=== PATIENT | female | born 1945 | race Caucasian/White ===

== ENCOUNTER → 2016-07-18 | Outpatient (CLI) | payer MEDICARE, OTHER | LOC: MC.RAD 09:52 | DX: Z12.31 Encounter for screening mammogram for malignant neoplasm of breast (principal); Z80.3 Family history of malignant neoplasm of breast ==

== ENCOUNTER → 2017-08-09 | Outpatient (CLI) | payer MEDICARE, OTHER | LOC: MC.RAD 10:40 | DX: Z12.31 Encounter for screening mammogram for malignant neoplasm of breast (principal) ==

== ENCOUNTER 2018-01-03 05:59 | Day surgery (SDC) | payer MEDICARE, OTHER ==
[~2018-01-03] VITALS: Ht 152.4 cm; Wt 68.2 kg
[2018-01-03] VITALS (8 sets, daily range): BP systolic 109–136; BP diastolic 62–81; PULSE 64–75; TEMP 97.9
[2018-01-03 06:25] LABS: HEMATOCRIT 39.9 % (37.0-47.0); HEMOGLOBIN 13.9 g/dl (12.5-16.0); MEAN CELL VOLUME 94 fl (80.0-100.0); MEAN CORPUSCULAR HEMOGLOBIN 33 pg (27.0-31.0); MEAN CORPUSCULAR HGB CONC 35 g/dl (33.0-37.0); MEAN PLATELET VOLUME 9.7 fl (7.4-10.4); PLATELET COUNT 253 K/mm3 (130-400); RED BLOOD COUNT 4.24 M/mm3 (4.10-5.30); REDCELL DISTRIBUTION WIDTH-CV 12.3 % (11.5-14.5)
[2018-01-03 06:30] LABS: INR 0.9 (0.8-3.0); PROTHROMBIN TIME 10.3 SECONDS (9.7-12.8)
[2018-01-03 06:38] LABS: CALCIUM 8.9 mg/dL (8.4-10.2); CREATININE, serum 0.75 mg/dL (0.52-1.25); POTASSIUM 4.1 mmol/L (3.4-5.0)
[2018-01-03] MEDS ORDERED: LEXAPRO20 MG PO (07:13)
[2018-01-03] MEDS ORDERED: PRIL40 PO (07:18)
[2018-01-03] MEDS ORDERED: SINGULAIR 110 MG/TAB PO (07:18)
[2018-01-03] MEDS ORDERED: [UNRECOGNIZED DRUG - REMARK] PO (07:19)
[2018-01-03] MEDS ORDERED: MASON NATURAL2000 IU PO (07:21)
[2018-01-03] MEDS ORDERED: PROBIOTIC FORMU1 CAP PO (07:21)
[2018-01-03] MEDS ORDERED: LIPITOR 80MG80 MG PO (07:22)
[2018-01-03] MEDS ORDERED: PLAVIX 75MG TAB75 MG PO (07:22)
[2018-01-03] MEDS ORDERED: ASPIRIN 81M81 MG/TA2 PO (07:23)
[2018-01-03] MEDS ORDERED: IMDUR 30MG30 MG/TAB PO (09:30)
== END 2018-01-03 12:34 | disposition home or self-care (01) ==
LOC: COL.CAR 05:59
PROVIDERS: Internal Medicine Cardiovascular Disease
DX: I25.10 Atherosclerotic heart disease of native coronary artery without angina pectoris (principal); I11.0 Hypertensive heart disease with heart failure; I50.9 Heart failure, unspecified; R94.39 Abnormal result of other cardiovascular function study; R94.31 Abnormal electrocardiogram [ECG] [EKG]; I27.20 Pulmonary hypertension, unspecified; Z82.49 Family history of ischemic heart disease and other diseases of the circulatory system; Z83.3 Family history of diabetes mellitus
CPT/HCPCS: J1644; J2250; J3010; Q9967

== ENCOUNTER → 2018-08-28 | Outpatient (CLI) | payer MEDICARE, OTHER ==
[~2018-08-28] MED LIST: ASPIRIN 81M81 MG/TA2 PO; IMDUR 30MG30 MG/TAB PO; LEXAPRO20 MG PO; LIPITOR 80MG80 MG PO; MASON NATURAL2000 IU PO; PLAVIX 75MG TAB75 MG PO; PRIL40 PO; PROBIOTIC FORMU1 CAP PO; SINGULAIR 110 MG/TAB PO; [UNRECOGNIZED DRUG - REMARK] PO
== END ==
LOC: MC.RAD 10:48
DX: Z12.31 Encounter for screening mammogram for malignant neoplasm of breast (principal)

== ENCOUNTER → 2018-11-08 | Outpatient (CLI) | payer MEDICARE, OTHER | LOC: COL.PUL 12:59 | DX: R05 Cough (principal) | CPT/HCPCS: J7674 ==

== ENCOUNTER 2019-01-31 18:20 | Emergency (ER) | payer MEDICARE, OTHER ==
[~2019-01-31] VITALS: Ht 152.4 cm; Wt 65.9 kg
[2019-01-31 19:54] LABS: HEMATOCRIT 40.1 % (37.0-47.0); HEMOGLOBIN 13.8 g/dl (12.5-16.0); MEAN CELL VOLUME 94 fl (80.0-100.0); MEAN CORPUSCULAR HEMOGLOBIN 32 pg (27.0-31.0); MEAN CORPUSCULAR HGB CONC 34 g/dl (33.0-37.0); MEAN PLATELET VOLUME 10.6 fl (7.4-10.4); PLATELET COUNT 110 K/mm3 (130-400); RED BLOOD COUNT 4.26 M/mm3 (4.10-5.30); REDCELL DISTRIBUTION WIDTH-CV 12.3 % (11.5-14.5)
[2019-01-31 20:01] LABS: ALBUMIN 4.3 gm/dL (3.5-5.0); BILIRUBIN,TOTAL 0.7 mg/dL (0.0-1.0); CALCIUM 8.7 mg/dL (8.4-10.2); CREATININE, serum 0.91 (0.52-1.25); POTASSIUM 3.4 mmol/L (3.4-5.0); TOTAL PROTEIN 7.2 gm/dL (6.4-8.2)
[2019-01-31 21:41] LABS: BAND 27 % (0-10); BASOPHIL 1 % (0-2); LYMPHOCYTE 7 % (20.0-51.0); METAMYELOCYTE 1 % (0-0); MYELOCYTE 1 % (0-0); NEUTROPHILS 58 % (42.0-75.2)
[2019-01-31 21:42] LABS: PLATELET ESTIMATE DECREASED (NORMAL)
[2019-01-31 21:46] VITALS: TEMP 98.3
[2019-01-31] MEDS ORDERED: ZITHROMAX500 M2 PO ×2 (21:49)
[2019-01-31 22:00] VITALS: BP 99/60; PULSE 95
[2019-02-02] MEDS ORDERED: DOXYCYCLINE 10100 MG PO ×2 (04:55)
[2019-02-02 10:32] LABS: PATHOLOGY DIFF REVIEW OK
== END 2019-01-31 22:00 | disposition home or self-care (01) ==
LOC: COL.ER 18:20
PROVIDERS: Emergency Medicine
DX: J18.1 Lobar pneumonia, unspecified organism (principal); B34.9 Viral infection, unspecified; I10 Essential (primary) hypertension; E78.5 Hyperlipidemia, unspecified; Z79.82 Long term (current) use of aspirin
CPT/HCPCS: A4216; J0696; J1885; J2405; J3010; J7030

== ENCOUNTER 2019-02-02 07:56 | Inpatient (IN) | payer MEDICARE, OTHER ==
[~2019-02-02] VITALS: Ht 152.4 cm; Wt 68.8 kg
[~2019-02-02 07:56] MED LIST changes: +DOXYCYCLINE 10100 MG PO; +ZITHROMAX500 M2 PO
[2019-02-02 08:44] LABS: MEAN CELL VOLUME 94 fl (80.0-100.0); MEAN CORPUSCULAR HGB CONC 34 g/dl (33.0-37.0); MEAN PLATELET VOLUME 12.3 fl (7.4-10.4); PLATELET COUNT 51 K/mm3 (130-400); RED BLOOD COUNT 3.72 M/mm3 (4.10-5.30); REDCELL DISTRIBUTION WIDTH-CV 12.8 % (11.5-14.5)
[2019-02-02 08:46] LABS: HEMATOCRIT 34.8 % (37.0-47.0); HEMOGLOBIN 11.8 g/dl (12.5-16.0); MEAN CORPUSCULAR HEMOGLOBIN 32 pg (27.0-31.0)
[2019-02-02 08:47] LABS: COLLECTION METHOD CLEAN CATCH
[2019-02-02 08:56] LABS: ALBUMIN 3.4 gm/dL (3.5-5.0); BILIRUBIN,TOTAL 1.9 mg/dL (0.0-1.0); CREATININE, serum 0.7 (0.52-1.25); POTASSIUM 3.6 mmol/L (3.4-5.0)
[2019-02-02 09:03] LABS: MUCOUS Present /lpf; PH 5 (5-8); URINE APPEARANCE Hazy; URINE BACTERIA None Seen /hpf; URINE BILIRUBIN Positive (NEGATIVE); URINE BLOOD 1+ (NEGATIVE); URINE COLOR Amber; URINE GLUCOSE Negative (NEGATIVE); URINE KETONE 1+ (NEGATIVE); URINE LEUKOCYTE ESTERASE Negative (NEGATIVE); URINE NITRATE Negative (NEGATIVE); URINE PROTEIN(semi-quant) 2+ (NEGATIVE); URINE RBC 20-50 /hpf; URINE UROBILINOGEN >=4.0 mg/dL (NEGATIVE)
[2019-02-02 09:14] LABS: BAND 25 % (0-10); LYMPHOCYTE 13 % (20.0-51.0); METAMYELOCYTE 2 % (0-0); NEUTROPHILS 57 % (42.0-75.2); PLATELET ESTIMATE DECREASED (NORMAL)
[2019-02-02 09:51] LABS: LACTATE DEHYDROGENASE 1328 U/L (313-618)
[2019-02-02 10:03] LABS: BILIRUBIN,DIRECT 1.1 mg/dL (0.0-0.4)
[2019-02-02 10:04] LABS: TROPONIN-I < 0.012 ng/mL (0.000-0.035)
[2019-02-02 10:42] LABS: PATHOLOGY DIFF REVIEW OK +
[2019-02-02 13:28] VITALS: BP 94/54; PULSE 79; TEMP 98.8
--- NOTE | 2019-02-02 13:30 | NUR ---
PT ADMITTED TO FLOOR. NS INFUSING WITHOUT ISSUE. PT HAD C/O CHRONIC LEG PAIN AND REQUESTED MOTRIN, WILL CALL PROVIDER FOR PRN.
[2019-02-02] MEDS ORDERED: MOTRIN 400400 MG/TAB PO (14:15)
--- NOTE | 2019-02-02 14:51 | NUR ---
Vancomycin Initial Dosing Pharmacy Note Ordering provider: Joss Jennings MD Indication/duration: [facility] BACTEREMIA Relevant comorbidities: LABS: SCR 0.7 EST CRCL ~50 Recommendation: Loading dose: Maintenance dose: 1 gram every 12 hours Trough goal: 15-20 ug/mL
[2019-02-02] MEDS ORDERED: NORVASC 5MG5 MG/TAB PO (17:25)
[2019-02-02 18:50] VITALS: BP 90/46; PULSE 83; TEMP 98.6
--- NOTE | 2019-02-02 19:50 | NUR ---
Shift assessment complete. Pt resting in bed, awake, a&o, cooperative c cares. Pt denies pain or other specific c/o, reports "I'm just tired of feeling like this", denies needs. IV patent. Tele in place. Pt denies needs. Call light in reach, will monitor.
[2019-02-02 23:59] VITALS: BP 113/43; PULSE 110; TEMP 100.9
[2019-02-03 03:18] VITALS: BP 100/49; PULSE 102; TEMP 99.7
[2019-02-03 06:12] LABS: HEMOGLOBIN 10.6 g/dl (12.5-16.0); MEAN CELL VOLUME 94 fl (80.0-100.0); MEAN CORPUSCULAR HEMOGLOBIN 32 pg (27.0-31.0); MEAN CORPUSCULAR HGB CONC 34 g/dl (33.0-37.0); REDCELL DISTRIBUTION WIDTH-CV 13.1 % (11.5-14.5)
[2019-02-03 06:16] LABS: PROTHROMBIN TIME 11.5 SECONDS (9.7-12.8)
[2019-02-03 06:17] LABS: HEMATOCRIT 31.1 % (37.0-47.0)
[2019-02-03 06:18] LABS: PLATELET COUNT 42 K/mm3 (130-400)
[2019-02-03 06:28] LABS: ALBUMIN 2.9 gm/dL (3.5-5.0); BILIRUBIN UNCONJUGATED 0.8 mg/dL (0.0-1.1); BILIRUBIN,DIRECT 1.1 mg/dL (0.0-0.4); BILIRUBIN,TOTAL 1.9 mg/dL (0.0-1.0); CALCIUM 7.5 mg/dL (8.4-10.2); CREATININE, serum 0.73 (0.52-1.25); POTASSIUM 3.6 mmol/L (3.4-5.0); TOTAL PROTEIN 5.4 gm/dL (6.4-8.2)
[2019-02-03 06:37] LABS: BASOPHIL 3 % (0-2); LYMPHOCYTE 13 % (20.0-51.0); NEUTROPHILS 78 % (42.0-75.2); PLATELET ESTIMATE DECREASED (NORMAL)
[2019-02-03 07:15] LABS: CHOLESTEROL RISK RATIO 3.8; MAGNESIUM 1.9 mg/dL (1.6-2.3); PHOSPHOROUS 2.3 mg/dL (2.5-4.5)
[2019-02-03 07:45] VITALS: BP 110/48; PULSE 90; TEMP 98.6
--- NOTE | 2019-02-03 10:56 | NUR ---
JESSI met with the patient and the patient's , Artur (ph#[phone]), to discuss discharge plan. The patient lives in [place] with her . She reports independence with ADLs and has a cane and home oxygen from [facility]. The patient's PCP is Dr. Angelina Rodriguez and she receives her medications at [facility]. She reports no difficulties obtaining her meds. The patient does not have advanced directives in EMR, but she states that she does have them completed. She states that her DPOA-HC is her daughter, Annie Clark (ph#[phone]). The patient plans to return back home with her upon discharge. No other identified needs at this time.
[2019-02-03 11:55] VITALS: BP 94/71; PULSE 83; TEMP 98.8
[2019-02-03 15:30] VITALS: BP 101/54; PULSE 96; TEMP 98.2
[2019-02-03 17:33] LABS: IRON,SERUM 36 ug/dL (35-150)
[2019-02-03 17:38] LABS: TOTAL IRON BINDING CAPACITY 223 ug/dL (265-497)
[2019-02-03 18:55] LABS: HEPATITIS A ANTIBODY-IGM Negative (Negative); HEPATITIS B SURFACE ANTIBODY 5.2 (()); HEPATITIS B SURFACE ANTIGEN Negative (Negative); HEPATITIS C VIRUS ANTIBODY Negative (Negative)
--- NOTE | 2019-02-03 19:00 | NUR ---
REPORT RECEIVED FROM YANCI, CARE OF PT ASSUMED AT THIS TIME. BEDSIDE ROUNDS COMPLETED AND PT DENIES NEEDS AT THIS TIME.
--- NOTE | 2019-02-03 19:00 | NUR ---
PT HAD UNEVENTFUL DAY. DID HAVE C/O ABD BLOATINESS AND TIGHTNESS AFTER EATING THIS AM, REMINDED PT TO TRY TO EAT MORE BLAND FOOD THAT DOESNT HAVE ALOT OR GREASE OR SPICE TO IT TO SEE IF THAT MIGHT HELP DUE TO NOTED ISSUES WITH GALLBLADDER. IV FLUIDS DC'D TODAY. PT STATED THAT SHE WAS TRYING TO MOVE AROUND MORE IN ROOM TO SEE IF THAT WOULD HELP HER ABD PRESSURE. NO OTHER CONSERNS OR ISSUES VOICED THIS SHIFT.
[2019-02-03 19:39] VITALS: BP 116/70; PULSE 92; TEMP 98.2
--- NOTE | 2019-02-03 20:56 | NUR ---
PT IS AWAKE, ALERT, OX4, PLEASANT AND COOPERATIVE. PT REPORTS ABDOMINAL PAIN TO RUQ, RATES AT 8/10 CURRENTLY. PT PROVIDED WITH MOTRIN PER REQUEST. STATES THIS PAIN IS TYPICALLY WORSE IN THE EVENING OR AFTER EATING. PT REPORTS HAVING MULTIPLE LOOSE STOOLS TODAY, DENIES URINARY ISSUES. PT APPEARS DYSPNEIC AT REST AND IS INCREASED WITH ACTIVITY, WEARING O2 AT 2L PER NC; TYPICALLY ONLY WEARS AT NIGHT BUT IS REQUIRING THROUGHOUT THE DAY ALSO AT THIS TIME. HR REG, NO EDEMA NOTED. PT DENIES ANY DIZZINESS OR OTHER BALANCE ISSUESL IS UP INDEPENDENTLY WITHIN THE ROOM WITHOUT ISSUES. CALL LIGHT WITHIN REACH.
[2019-02-03 20:58] LABS: FERRITIN 14100 ng/mL (11-264)
[2019-02-04] VITALS (7 sets, daily range): BP systolic 90–115; BP diastolic 49–66; PULSE 79–97; TEMP 97.9–98.8
--- NOTE | 2019-02-04 05:53 | NUR ---
PT HAS HAD A GOOD NIGHT, SLEPT THROUGH THE NIGHT WITHOUT ANY PROBLEMS. PT CONTINUES TO REPORT SOME ABDOMINAL PAIN, RATES AT 8/10 BUT DENIES NEED FOR PAIN MEDICATION AT THIS TIME. O2 ON AT 2L PER NC. PT DENIES SOB OR OTHER ISSUES. UP TO THE BR INDPENDENTLY. CALL LIGHT WITHIN REACH.
[2019-02-04 06:35] LABS: HEMOGLOBIN 12.2 g/dl (12.5-16.0); MEAN CELL VOLUME 95 fl (80.0-100.0); MEAN CORPUSCULAR HEMOGLOBIN 32 pg (27.0-31.0); MEAN CORPUSCULAR HGB CONC 34 g/dl (33.0-37.0); MEAN PLATELET VOLUME 12.6 fl (7.4-10.4); RED BLOOD COUNT 3.78 M/mm3 (4.10-5.30); REDCELL DISTRIBUTION WIDTH-CV 13.8 % (11.5-14.5)
[2019-02-04 06:46] LABS: ALBUMIN 3.2 gm/dL (3.5-5.0); BILIRUBIN,TOTAL 1.8 mg/dL (0.0-1.0); CALCIUM 8.1 mg/dL (8.4-10.2); CREATININE, serum 0.67 (0.52-1.25); MAGNESIUM 2.4 mg/dL (1.6-2.3); PHOSPHOROUS 2.3 mg/dL (2.5-4.5); POTASSIUM 3.4 mmol/L (3.4-5.0); TOTAL PROTEIN 5.9 gm/dL (6.4-8.2)
[2019-02-04 07:07] LABS: HEMATOCRIT 35.8 % (37.0-47.0)
[2019-02-04 07:09] LABS: PLATELET COUNT 44 K/mm3 (130-400)
[2019-02-04 08:12] LABS: BAND 32 % (0-10); LYMPHOCYTE 16 % (20.0-51.0); NEUTROPHILS 47 % (42.0-75.2); PLATELET ESTIMATE DECREASED (NORMAL); SPHEROCYTE 1+
--- NOTE | 2019-02-04 11:18 | NUR ---
First visit from the account resolution expert. No needs right now.
[2019-02-04 11:39] LABS: MONOSCREEN NEGATIVE
--- NOTE | 2019-02-04 19:53 | NUR ---
PT HAD UNEVENTFUL DAY. RECIEVED MEDICATIONS SCHEDULED. HAS TO RESTART IV SITE TO NEW LOCATION. LAB DRAWNS TAKEN NEEDED PER ORDERS. PT/OT AHS WORKED WITH PT. PT HAD GOOD OUTPUT THIS SHIFT AFTER LASIX AND STATED SHE WAS FEELING BETTER WEITH LESS PRESSURE FEELING IN HER ABD. PT DOES CONTINUE TO HAVE DIAHREA, C-DIFF COLLECTED PER DR. FRIEDMAN ORDERS. PLEASENT AND COOPERATIVE WITH CARES. PT AWEAR OF FLUID RESTRICTION. HAS NEEDED ONE ROUND OF MOTRIN THIS SHIFT.
--- NOTE | 2019-02-04 20:00 | NUR ---
Shift assessment complete. Pt resting in bed, awake, a&o, cooperative c cares. 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 Pt denies any other c/o et reports feeling "pretty good today". Tele in place. O2 per NC. INT patent. Pt denies further needs. Call light in reach, will monitor.
[2019-02-05 02:35] LABS: CERULOPLASMIN 29 mg/dL (18-53)
[2019-02-05 03:13] VITALS: BP 90/50; PULSE 78
[2019-02-05 06:51] LABS: MEAN CELL VOLUME 92 fl (80.0-100.0); MEAN CORPUSCULAR HEMOGLOBIN 32 pg (27.0-31.0); MEAN CORPUSCULAR HGB CONC 35 g/dl (33.0-37.0); MEAN PLATELET VOLUME 13.1 fl (7.4-10.4); RED BLOOD COUNT 3.44 M/mm3 (4.10-5.30); REDCELL DISTRIBUTION WIDTH-CV 13.5 % (11.5-14.5)
[2019-02-05 06:54] LABS: INR 0.9 (0.8-3.0); PROTHROMBIN TIME 10.6 SECONDS (9.7-12.8)
[2019-02-05 06:57] LABS: PARTIAL THROMBOPLASTIN TIME 30.2 SECONDS (26.0-37.0)
[2019-02-05 07:00] LABS: ALBUMIN 2.8 gm/dL (3.5-5.0); BILIRUBIN,TOTAL 1.1 mg/dL (0.0-1.0); CALCIUM 7.8 mg/dL (8.4-10.2); CREATININE, serum 0.74 (0.52-1.25); MAGNESIUM 2.3 mg/dL (1.6-2.3); PHOSPHOROUS 2.7 mg/dL (2.5-4.5); TOTAL PROTEIN 5.4 gm/dL (6.4-8.2)
[2019-02-05 07:07] LABS: HEMATOCRIT 31.5 % (37.0-47.0)
[2019-02-05 07:09] LABS: PLATELET COUNT 47 K/mm3 (130-400)
[2019-02-05 07:44] VITALS: BP 136/121; PULSE 96; TEMP 99.1
--- NOTE | 2019-02-05 08:30 | NUR ---
Assessment complete. Pt sitting up in bed, A&O x 4, just back from ambulating in hallway, slight dyspnea noted. O2 at 2 L/min via NC. Breath sounds CTAB. BS active x 4. Pt denies pain at this time, just slight aches. Pt reports feeling occasional palpitations. Saline lock IV to right hand without s/s of complications. No further needs reported. Call light in reach.
[2019-02-05 08:54] LABS: BAND 28 % (0-10); NEUTROPHILS 28 % (42.0-75.2)
[2019-02-05 08:55] LABS: PLATELET ESTIMATE DECREASED (NORMAL)
[2019-02-05 08:56] LABS: LYMPHOCYTE 25 % (20.0-51.0)
[2019-02-05 11:23] VITALS: BP 115/64; PULSE 96; TEMP 97.9
[2019-02-05 13:43] LABS: ALPHA 1 ANTITRYPSIN TOTAL 208.2 mg/dL (())
--- NOTE | 2019-02-05 13:53 | NUR ---
RT reports pt O2 sats 83% on room air. PA notified.
[2019-02-05 17:07] VITALS: BP 98/59; PULSE 98; TEMP 98.7
--- NOTE | 2019-02-05 18:00 | NUR ---
Pt sitting up in bed eating dinner, at bedside. Pt and questioning why pt needed to stay over night. This nurse explains about pt's increased O2 need compared to baseline. Pt and verbalize understanding. No further needs reported. Call light in reach.
[2019-02-05 18:49] VITALS: BP 97/57; PULSE 96; TEMP 98.6
--- NOTE | 2019-02-05 20:34 | NUR ---
Resting in bed. Assessment complete. Base bilaterally crackles, reports shortness of breath with movement and talking. Heart sounds normal. Pulses strong throughout. No edema noted. Buttocks-erythema present from diarrhea. Patient states diarrhea has stopped at this time. Denies needs. Denies pain. Call light in reach.
--- NOTE | 2019-02-06 | NUR ---
Resting in bed. Denies needs. Call light in reach.
[2019-02-06 00:14] VITALS: BP 110/79; PULSE 87; TEMP 98.2
[2019-02-06 03:25] VITALS: BP 100/80; PULSE 92; TEMP 98.5
--- NOTE | 2019-02-06 04:00 | NUR ---
Resting in bed. Denies needs. Call light in reach.
--- NOTE | 2019-02-06 06:14 | NUR ---
Patient had uneventful night. Resting in bed this AM. Denies needs. Call light in reach.
--- NOTE | 2019-02-06 07:13 | NUR ---
Report given to MANDA Hoffman
[2019-02-06 07:45] LABS: HEMOGLOBIN 11.8 g/dl (12.5-16.0); MEAN CELL VOLUME 92 fl (80.0-100.0); MEAN CORPUSCULAR HEMOGLOBIN 32 pg (27.0-31.0); MEAN CORPUSCULAR HGB CONC 35 g/dl (33.0-37.0); PLATELET COUNT 91 K/mm3 (130-400); REDCELL DISTRIBUTION WIDTH-CV 13.7 % (11.5-14.5)
[2019-02-06 07:51] VITALS: BP 113/65; PULSE 89; TEMP 98.9
[2019-02-06 07:54] LABS: HEMATOCRIT 34.1 % (37.0-47.0)
[2019-02-06 08:00] LABS: ALBUMIN 3.3 gm/dL (3.5-5.0); BILIRUBIN,TOTAL 0.9 mg/dL (0.0-1.0); CALCIUM 8.1 mg/dL (8.4-10.2); CREATININE, serum 0.9 (0.52-1.25); POTASSIUM 3.4 mmol/L (3.4-5.0); TOTAL PROTEIN 6.3 gm/dL (6.4-8.2)
[2019-02-06 08:34] LABS: BAND 6 % (0-10); BASOPHIL 2 % (0-2); NEUTROPHILS 41 % (42.0-75.2)
[2019-02-06 08:35] LABS: PLATELET ESTIMATE DECREASED (NORMAL)
[2019-02-06 08:39] LABS: LYMPHOCYTE 48 % (20.0-51.0)
[2019-02-06] MEDS ORDERED: LASIX 20MG TABL20 MG PO (09:10)
[2019-02-06] MEDS ORDERED: K-DUR20 MEQ PO (09:10)
[2019-02-06] MEDS ORDERED: DOXYCYCLINE 10100 MG PO (09:16)
--- NOTE | 2019-02-06 09:56 | NUR ---
INITIAL; PT LAYING IN BED EATING BREAKFAST. ASSESSMENT COMPLETE. VITALS WNL. NO CONCERNS. CALL LIGHT AND PHONE WITHIN REACH.
--- NOTE | 2019-02-06 10:00 | NUR ---
PT 82% ROOM AIR AT REST. O2 BACK ON @ 2 LPM AT REST SPO2 94%.
[2019-02-06 12:15] LABS: LYME DISEASE ANTIBODIES Negative (Negative)
[2019-02-06 13:41] LABS: EBV NUCLEAR ANTIGEN IGG Positive (())
--- NOTE | 2019-02-06 13:54 | NUR ---
The patient qualified for continuous oxygen. JESSI met with the patient and the patient's to discuss DME options and to present and explain the Patient Choice Form. The patient states that she already receives her nocturnal oxygen from [facility] and chose to receive her continuous oxygen from [facility] also. JESSI contacted and faxed the patient's oxygen order to Antionette at [facility]. Antionette reports that they will deliver a portable oxygen tank to the patient's room. JESSI informed the patient and patient's . The patient is to discharge back home with her today, 02/06. JESSI presented and explained the IM form to the patient. The patient verbalized understanding, signed, and she was provided a copy. No additional needs at this time.
--- NOTE | 2019-02-06 14:56 | NUR ---
PT DISCHARGING; HOME OXYGEN IS REQUIRED AND HAS BEEN SENT HOME WITH THE PT. NO CONCERNS AT THIS TIME REGARDING DISCHARGE. PT TAKEN TO VEHICLE BY [facility] AND ACCOMPANIED BY PT'S . SHE HAD NO COMPLAINTS OF PAIN OR DISCOMFORT UPON DISCHARGE.
[2019-02-06 15:12] LABS: EBV EARLY ANTIGEN IGG Negative (()); EBV IGM AB Negative (())
[2019-02-06 16:03] LABS: ANTISMOOTH MUSCLE ANTIBODY Negative (Negative)
== END 2019-02-06 14:55 | disposition home or self-care (01) | DRG 871 ==
LOC: COL.ER 07:56 → MEDICAL 10:58
PROVIDERS: Hospitalist; Internal Medicine; Internal Medicine Gastroenterology; Internal Medicine Infectious Disease; Nurse Practitioner Family; Physician Assistant; ADMIT Emergency Medicine
DX: A40.9 Streptococcal sepsis, unspecified (principal); I50.33 Acute on chronic diastolic (congestive) heart failure; J96.01 Acute respiratory failure with hypoxia; D61.818 Other pancytopenia; I47.1 Supraventricular tachycardia; E78.5 Hyperlipidemia, unspecified; M25.50 Pain in unspecified joint; M79.10 Myalgia, unspecified site; R65.20 Severe sepsis without septic shock; F41.9 Anxiety disorder, unspecified; F32.9 Major depressive disorder, single episode, unspecified; R05 Cough; K22.70 Barrett's esophagus without dysplasia; K75.81 Nonalcoholic steatohepatitis (NASH); E87.6 Hypokalemia; B34.9 Viral infection, unspecified; I11.0 Hypertensive heart disease with heart failure; I27.20 Pulmonary hypertension, unspecified; E80.6 Other disorders of bilirubin metabolism; D69.6 Thrombocytopenia, unspecified; E83.39 Other disorders of phosphorus metabolism; Z88.0 Allergy status to penicillin
CPT/HCPCS: 99222-AI; 99232-AI; 99233-AI; 99239; A4216; J0692; J0696; J1940; J3370; J7030; J7050; Q9967

== ENCOUNTER 2019-03-07 06:00 | Day surgery (SDC) | payer MEDICARE, OTHER ==
[~2019-03-07] VITALS: Ht 152.4 cm; Wt 63.2 kg
[2019-03-07] VITALS (7 sets, daily range): BP systolic 115–136; BP diastolic 61–82; PULSE 64–69; TEMP 98
[~2019-03-07 06:00] MED LIST changes: +K-DUR20 MEQ PO; +LASIX 20MG TABL20 MG PO; +MOTRIN 400400 MG/TAB PO; +NORVASC 5MG5 MG/TAB PO
[2019-03-07 06:48] LABS: HEMOGLOBIN 12.2 g/dl (12.5-16.0); MEAN CELL VOLUME 96 fl (80.0-100.0); MEAN CORPUSCULAR HEMOGLOBIN 32 pg (27.0-31.0); MEAN CORPUSCULAR HGB CONC 33 g/dl (33.0-37.0); MEAN PLATELET VOLUME 9.8 fl (7.4-10.4); PLATELET COUNT 230 K/mm3 (130-400); RED BLOOD COUNT 3.82 M/mm3 (4.10-5.30); REDCELL DISTRIBUTION WIDTH-CV 13.1 % (11.5-14.5)
[2019-03-07] MEDS ORDERED: LASIX 20MG TABL20 MG PO (06:48)
[2019-03-07 06:49] LABS: HEMATOCRIT 36.7 % (37.0-47.0)
[2019-03-07 07:05] LABS: INR 0.9 (0.8-3.0); PROTHROMBIN TIME 10.9 SECONDS (9.7-12.8)
[2019-03-07 07:08] LABS: CALCIUM 9.2 mg/dL (8.4-10.2); CREATININE, serum 0.91 (0.52-1.25); POTASSIUM 4.1 mmol/L (3.4-5.0)
--- NOTE | 2019-03-07 08:21 | NUR ---
SEE MERGE DOCUMENTATION FOR MEDICATION ADMINISTRATION TIMES AND INTRA/POST PROCEDURE SEDATION ASSESSMENTS.
--- NOTE | 2019-03-07 09:31 | NUR ---
Pt is back from laborer rags, bs report received from Romeo HOLMAN. Pt is awake and alert, sattting 98% on room air. plan for 1 hr bedrest. pt has a clean dry dressing to rt side of neck from IJ access for procedure. no hematoma or bruising/bleeding noted.
--- NOTE | 2019-03-07 10:30 | NUR ---
Pt has done well in recovery, no issues, no bleeding from site on rt neck, dressing is replaced at this time with 2x2 and tegaderm for pt comfort, (initial dressing was tugging at pt's skin). Pt has been able to drink coffee and water with no problem, she has been up and ambulatory in the room and has been able to void. I reviewed dc instructions r/t procedure, site care, and sedation. also review f/u plan. pt denies questions. she is escorted to exit via wheelchair, is driving her home.
== END 2019-03-07 10:56 | disposition home or self-care (01) ==
LOC: COL.CAR 06:00
PROVIDERS: Internal Medicine Cardiovascular Disease
DX: R06.09 Other forms of dyspnea (principal); I11.0 Hypertensive heart disease with heart failure; I50.9 Heart failure, unspecified; J84.9 Interstitial pulmonary disease, unspecified; I27.20 Pulmonary hypertension, unspecified; E78.5 Hyperlipidemia, unspecified; Z83.3 Family history of diabetes mellitus; Z82.49 Family history of ischemic heart disease and other diseases of the circulatory system; Z99.81 Dependence on supplemental oxygen; Z88.8 Allergy status to other drugs, medicaments and biological substances; Z88.0 Allergy status to penicillin; Z88.1 Allergy status to other antibiotic agents
CPT/HCPCS: J1644; J2250; J3010

== ENCOUNTER → 2019-04-22 | Outpatient (CLI) | payer MEDICARE, OTHER ==
[~2019-04-22] MED LIST changes: +ASPIRIN E.C. 8181 MG PO
== END ==
LOC: COL.RAD 08:30
DX: K21.9 Gastro-esophageal reflux disease without esophagitis (principal); M47.812 Spondylosis without myelopathy or radiculopathy, cervical region; M47.814 Spondylosis without myelopathy or radiculopathy, thoracic region; M48.02 Spinal stenosis, cervical region

== ENCOUNTER 2019-05-14 09:40 | Day surgery (SDC) | payer MEDICARE, OTHER ==
[~2019-05-14] VITALS: Ht 152.4 cm; Wt 62.5 kg
[2019-05-14] VITALS (9 sets, daily range): BP systolic 101–120; BP diastolic 54–77; PULSE 72–91; TEMP 97.9–98.7
[2019-05-14] MEDS ORDERED: LEXAPRO20 MG PO (10:15)
[2019-05-14] MEDS ORDERED: LASIX 20MG TABL20 MG PO (10:17)
[2019-05-14] MEDS ORDERED: CLARITIN 1010 MG/TAB PO (10:17)
[2019-05-14] MEDS ORDERED: ASPIRIN 81M81 MG/TA2 PO (10:18)
[2019-05-14] MEDS ORDERED: PEPCID 20MG TAB20 MG PO (10:19)
[2019-05-14 11:01] LABS: ARTERIAL BLD GAS O2 SATURATION 94.8 % (92-100); ARTERIAL BLD GAS TCO2 CT 25.6; ARTERIAL BLOOD GAS BASE EXCESS 0.3 (-2-2); ARTERIAL BLOOD GAS HCO3 24.4 meq/L (22-26); ARTERIAL BLOOD GAS PCO2 37.9 mmHg (35-45); ARTERIAL BLOOD GAS pH 7.43 (7.35-7.45)
[2019-05-14 11:05] LABS: CALCIUM 9.8 mg/dL (8.4-10.2); CREATININE, serum 0.93 (0.52-1.25); POTASSIUM 4.3 mmol/L (3.4-5.0)
--- NOTE | 2019-05-14 15:37 | NUR ---
PT TO ROOM 343 PER BED WITH REPORT FROM TARSHA GALLEGOS PACU @@[id number]. PT IS DROWSEY BUT AROUSES TO VERBAL. VSS. ASSESSMENTS COMPLETE. BANDAIDS OVER LAP SITES X6 CDI. AT BEDSIDE,
--- NOTE | 2019-05-14 22:04 | NUR ---
patient doing well tonight. x5 lap sites to abd cdi with bandaids. moderate pain throughout night, prn carlos and tylenol given for pain. patient ambulated to bathroom several times and had unmeasured void. did not eat very much dinner. iv to R and L hand INTd per orders. no further needs at this time. will continue to monitor.
[2019-05-15 04:01] VITALS: BP 101/58; PULSE 77; TEMP 98.4
[2019-05-15 07:44] VITALS: BP 105/61; PULSE 84; TEMP 99.1
--- NOTE | 2019-05-15 09:40 | NUR ---
JESSI met with the patient and her , Artur (ph#[phone]), to discuss discharge plan. The patient lives in [place] with her . She reports independence with ADLs and has canes and nocturnal oxygen from [facility]. The patient's PCP is Dr. Angelina Rodriguez and she receives her medications at [facility]. She reports no difficulties obtaining her meds. The patient does not have advanced directives in EMR, but she states that she does have them completed and at home. She states that her daughters: Karen Roger and Annie Clark are her DPOA-HC. The patient plans to return home with her upon discharge. No additional needs at this time.
--- NOTE | 2019-05-15 11:25 | NUR ---
Patient in bed resting. Alert and oriented x 3. Shift assessment complete. Lap sites with bandaids, CDI. Patient independent in room, has been up ambulating in halls. Tolerating clear liquids, advanced to full liquids. Patient states she is passing gas, denies BM. Denies pain or further needs at this time.
--- NOTE | 2019-05-15 11:28 | NUR ---
Patient called out to nurses station, requests tylenol for mild incisional pain. Medication given per orders. Reported off to Marianna YOO
--- NOTE | 2019-05-15 11:43 | NUR ---
First visit from the wheel installer. No needs right now.
[2019-05-15 11:47] VITALS: BP 93/75; PULSE 85; TEMP 99
[2019-05-15 15:48] VITALS: BP 123/82; PULSE 76; TEMP 98.4
[2019-05-15] MEDS ORDERED: ROXICODONE 55 MG/TAB PO (17:15)
--- NOTE | 2019-05-15 18:39 | NUR ---
Discharge teaching completed. Discussed importance of making and keeping follow up appointment, patient verbalized understanding. INT removed from right hand, catheter intact, hemostasis achieved. Patient and spouse escorted to entrance, where she entered a private vehicle.
--- NOTE | 2019-05-15 19:30 | NUR ---
patient discharged at 1929. iv to R hand discontinued. pressure held. bandaid applied. walked out by this nurse. ambulatory. drove her.
== END 2019-05-15 19:30 | disposition home or self-care (01) ==
LOC: SDCO 09:40 → SURG 15:20 → SDCO 05-15 19:30
PROVIDERS: Nurse Anesthetist, Certified Registered
DX: K21.9 Gastro-esophageal reflux disease without esophagitis (principal); K44.9 Diaphragmatic hernia without obstruction or gangrene; Z88.1 Allergy status to other antibiotic agents; Z88.0 Allergy status to penicillin; Z88.2 Allergy status to sulfonamides
CPT/HCPCS: C1781; J1644; J2250; J2405; J3010; J7120

== ENCOUNTER → 2019-10-06 | Outpatient (CLI) | payer MEDICARE, OTHER ==
[~2019-10-06] MED LIST changes: +CLARITIN 1010 MG/TAB PO; +PEPCID 20MG TAB20 MG PO; +ROXICODONE 55 MG/TAB PO
== END ==
LOC: COL.RAD 10:07
DX: I27.20 Pulmonary hypertension, unspecified (principal); J84.10 Pulmonary fibrosis, unspecified; M19.90 Unspecified osteoarthritis, unspecified site
CPT/HCPCS: A9540; A9567

== ENCOUNTER 2021-12-29 12:45 | Outpatient (RCR) | payer MEDICARE, OTHER | END 2022-01-04 | disposition home or self-care (01) | LOC: WSST | DX: R49.0 Dysphonia (principal) ==

== ENCOUNTER 2023-05-10 17:07 | Emergency (ER) | payer MEDICARE, OTHER ==
[~2023-05-10] VITALS: Ht 152.4 cm; Wt 50.0 kg
[~2023-05-10 17:07] MED LIST changes: +ACTONEL30 MG PO; +FLONASEALLERGY NS; +IMODIUM 2MG CAPS2 MG PO; +LIPITOR 40MG TA40 MG PO; +MUCUS RELIEF1200 MG PO; +OFEV150 MG PO; +PROBIOTIC BLEN1 EACH PO; +PROTONIX 40MG T40 MG PO; +RT ADVAIR HFA 1112 G IH; +ZOLOFT 100MG100 MG PO
[2023-05-10 17:56] LABS: BASO % 0.6 % (0.0-2.0); EOS # 0.3 K/mm3 (0.0-0.7); EOS % 3.5 % (0.0-4.0); GRAN % 68.8 % (42.2-75.2); HEMOGLOBIN 13.7 g/dl (12.5-16.0); LYMPH # 1.3 K/mm3 (1.2-3.4); LYMPH % 18.1 % (20.0-51.0); MEAN CELL VOLUME 101 fl (80.0-100.0); MEAN CORPUSCULAR HEMOGLOBIN 33 pg (27-31); MEAN CORPUSCULAR HGB CONC 33 g/dl (33.0-37.0); MEAN PLATELET VOLUME 9.9 fl (7.4-10.4); MONO # 0.6 K/mm3 (0.1-0.6); MONO % 8.6 % (1.7-9.3); PLATELET COUNT 203 K/mm3 (130-400); RED BLOOD COUNT 4.16 M/mm3 (4.10-5.30); REDCELL DISTRIBUTION WIDTH-CV 13.6 % (11.5-14.5)
[2023-05-10 18:15] LABS: ALANINE AMINOTRANSFERASE 19 U/L (0-55); ALBUMIN 2.8 gm/dL (3.4-4.8); ALKALINE PHOSPHATASE 49 U/L (40-150); ANION GAP 8 mmol/L (7-16); AST,SGOT 22 U/L (5-34); BILIRUBIN,TOTAL 0.4 mg/dL (0.2-1.2); BLOOD UREA NITROGEN 16 mg/dL (10-20); CALCIUM 8.4 mg/dL (8.4-10.2); CARBON DIOXIDE 24 mmol/L (23-31); CHLORIDE 109 mmol/L (98-107); CREATININE, serum 0.83 mg/dL (0.57-1.11); GLUCOSE 101 mg/dL (70-99); POTASSIUM 4.3 mmol/L (3.5-4.5); SODIUM 141 mmol/L (136-145); TOTAL PROTEIN 5.2 gm/dL (6.2-8.1)
[2023-05-10 18:28] LABS: TROPONIN-I < 0.010 ng/mL (0.00-0.033)
[2023-05-10] MEDS ORDERED: DOXYCYCLINE 10100 MG PO (19:23)
[2023-05-10] MEDS ORDERED: IPRATROPIUM BROM3 M1 IH (19:23)
[2023-05-10] MEDS ORDERED: TESSALON P100 MG/CAP PO (19:23)
[2023-05-10 19:38] VITALS: BP 119/66; PULSE 86
== END 2023-05-10 19:38 | disposition home or self-care (01) ==
LOC: COL.ER 17:07
PROVIDERS: Emergency Medicine
DX: J84.10 Pulmonary fibrosis, unspecified (principal); Z88.0 Allergy status to penicillin